=== PATIENT | female | born 1955 | race Caucasian/White ===

== ENCOUNTER 2018-06-18 20:42 | Emergency (ER) | payer OTHER ==
[~2018-06-18] VITALS: Ht 154.9 cm; Wt 90.7 kg
[~2018-06-18 20:42] MED LIST: ATOR10TA PO; CALC500T19 PO; COZ50 PO; LEVO0.124 PO; METF1000 PO; ORE25 PO; SITA50TA3 PO
[2018-06-18 20:55] VITALS: BP 151/79
--- NOTE | 2018-06-18 21:01 | NUR ---
PT BACK TO LOBBY VIA WHEELCHAIR W/ DAUGHTER AT SIDE. VSS, PT ACTING APPROPRIATLY.
--- NOTE | 2018-06-18 21:36 | NUR ---
PT BROUGHT TO BED 12 VIA WHEELCHAIR
--- NOTE | 2018-06-18 21:45 | NUR ---
XRAY AT BEDSIDE.
--- NOTE | 2018-06-18 22:30 | NUR ---
63 YO F BIB SELF AND DAUGHTER PRESENTS TO ED C/O 12/25 SHARP/THROBBING RIGHT KNEE PAIN X 1 DAY. PT STATES SHE "FELT A POP" WHILE ATTEMPTING TO SIT DOWN YESTERDAY. -- NO GROSS DEFORMITY NOTED OR SWELLING NOTED. -- PT STATES UNABLE TO BEAR WEIGHT, BIB WC. -- PMH: DM, HTN, THYROID DISORDER PT POSITIONED FOR COMFORT. HOB ELEVATED. BED IN LOWEST POSITION. SIDE RAIL UP X1. VSS. NO APPARENT DISTRESS AT THIS TIME.
[2018-06-18] MEDS ORDERED: LIDOCAINE/EPI 2% 1:100000 20 ML VIAL INJ ONE (22:50)
[2018-06-18] MEDS ORDERED: methylPREDNISolone SS 125 MG/2 ML VIAL IVP ONE (22:50)
--- NOTE | 2018-06-18 23:00 | NUR ---
DR. DUNCAN PERFORMED KNEE ASPIRATION AT BEDSIDE. MEDICATED WITH LIDOCAINE AND SOLUMEDROL. ASPIRATED 15 ML BROWN SYNOVIAL FLUID. PT TOLERATED WELL AND REPORTED RELIEF FROM KNEE PAIN.
[2018-06-18 23:30] VITALS: BP 146/81
--- NOTE | 2018-06-18 23:30 | NUR ---
Note martha in EDM - 06/19/18 at 0237 [address] [facility] DR. DUNCAN PERFORMED KNEE ASPIRATION AT BEDSIDE. MEDICATED WITH LIDOCAINE AND SOLUMEDROL. ASPIRATED 15 ML BROWN SYNOVIAL FLUID. PT TOLERATED WELL AND REPORTED RELIEF FROM KNEE PAIN.
--- NOTE | 2018-06-18 23:30 | NUR ---
Patient discharged with v/s stable. Written and verbal after care instructions given and explained. Patient alert, oriented and verbalized understanding of instructions. Ambulatory with steady gait. All questions addressed prior to discharge. ID band removed. Patient advised to follow up with PMD. Rx of Naprosyn given. Patient educated on indication of medication including possible reaction and side effects. Opportunity to ask questions provided and answered. Addendum: 06/19/18 at 0239 by [facility] DISCHARGED BY DR. DUNCAN.
== END 2018-06-18 23:30 | disposition home or self-care (01) ==
LOC: MED 20:42
DX: S83.91XA Sprain of unspecified site of right knee, initial encounter (principal); M25.461 Effusion, right knee; J45.909 Unspecified asthma, uncomplicated; E11.9 Type 2 diabetes mellitus without complications; I10 Essential (primary) hypertension; E03.9 Hypothyroidism, unspecified; Z79.84 Long term (current) use of oral hypoglycemic drugs; Z79.899 Other long term (current) drug therapy; X58.XXXA Exposure to other specified factors, initial encounter; Y93.89 Activity, other specified; Y92.89 Other specified places as the place of occurrence of the external cause; Y99.8 Other external cause status
CPT/HCPCS: 20610; 73562; 96372; 99284; J2001; J2930

== ENCOUNTER 2021-10-11 23:27 | Inpatient (IN) | payer OTHER ==
[~2021-10-11] VITALS: Ht 152.4 cm; Wt 103.9 kg
[~2021-10-11 23:27] MED LIST changes: -COZ50 PO; +HYDR-4004 PO; +LOSA50TA57 PO; +METF-1274 PO; -METF1000 PO; -ORE25 PO
[2021-10-11 23:55] VITALS: BP 145/66
[2021-10-12 00:27] LABS: BASOPHILS # (AUTO) 0.1 K/uL (0.00-0.22); BASOPHILS % (AUTO) 0.5 % (0.0-2.0); EOSINOPHILS % (AUTO) 0.2 % (0.0-4.0); LYMPHOCYTES # (AUTO) 1.3 K/uL (2.5-16.5); LYMPHOCYTES % (AUTO) 10.5 % (20.5-51.1); MEAN CORPUSCULAR HEMOGLOBIN 18 pg (27-31); MEAN CORPUSCULAR HGB CONC 30 g/dL (33-37); MEAN CORPUSCULAR VOLUME 60.1 fL (80-94); MONOCYTES # (AUTO) 0.5 K/uL (0.8-1.0); MONOCYTES % (AUTO) 4.2 % (1.7-9.3); NEUTROPHILS # (AUTO) 10.2 K/uL (1.8-7.7); NEUTROPHILS % (AUTO) 84.6 % (42.2-75.2); PLATELET COUNT (AUTO) 386 K/uL (140-450); RED BLOOD CELL COUNT(AUTO) 3.27 MIL/uL (4.20-5.40); RED CELL DISTRIBUTION WIDTH 19.4 % (11.6-13.7)
--- NOTE | 2021-10-12 00:39 | NUR ---
PT TAKEN TO BED 9
[2021-10-12] MEDS ORDERED: ONDANSETRON 4 MG ODT PO ONE (00:40)
[2021-10-12 00:41] LABS: ALBUMIN 3.2 g/dL (3.4-5.0); CARBON DIOXIDE 26.1 mmol/L (21-32); CREATININE 1.2 mg/dL (0.6-1.3); TOTAL BILIRUBIN 0.4 mg/dL (0.0-1.0)
[2021-10-12 00:52] LABS: ANION GAP 11.3 (8-16); POTASSIUM 4.4 mmol/L (3.5-5.1)
--- NOTE | 2021-10-12 00:52 | NUR ---
66 Y/O FEMALE BIB DAUGHTER, C/O GENERAL WEEKNESS X 1 WEEK. PT IS NAUSEATED AND VOMITING X 1 DAY. PT IS NON COMPLIANT WITH HER MEDS AND POOR HISTORIAN. DAUGHTER OF PATIENT STATES THAT THE PT HAS A POOR THIRST/APETITE, FEELS DEPRESSED AND REFUSES TO COOPERATE WITH DAUGHTER ABOUT TAKING HOME MEDS. A/OX4, GCS-15; UNLABORED BREATHING, REFUSES TO SPEAK; AMBULATORY WITH ASSISTANCE; SKIN IS PINK/WARM/DRY; DENIES COUGH, CP, SOB, N/V/D, OR FEVER. PMH: DM, HTN MEDS: UNKNOWN
[2021-10-12] MEDS ORDERED: ONDANSETRON 4 MG/2 ML VIAL IVP ONE (01:00)
[2021-10-12] MEDS ORDERED: cefTRIAXone 1,000 MG in DEXT 5% MINI-BAG PLUS 50 ML IV ONE (01:00)
[2021-10-12] MEDS ORDERED: NACL 0.9% 1,000 ML IV SCH ×2 (01:00→10:45)
--- NOTE | 2021-10-12 01:05 | NUR ---
X-Ray at bedside.
[2021-10-12] MEDS ORDERED: cefTRIAXone 1,000 MG VIAL ONE (01:13)
[2021-10-12 01:39] LABS: WHITE BLOOD COUNT (AUTO) 12.1 K/uL (4.8-10.8)
[2021-10-12 01:40] LABS: HEMATOCRIT 19.7 % (36-48)
[2021-10-12 01:58] LABS: APPEARANCE,URINE CLEAR (CLEAR); BILIRUBIN,URINE NEGATIVE (NEGATIVE); BLOOD, URINE NEGATIVE (NEGATIVE); COLOR,URINE YELLOW (YELLOW); LEUKOCYTE ESTERASE ,URINE TRACE (NEGATIVE); NITRITE, URINE POSITIVE (NEGATIVE); PH,URINE 7.5 (5.0-9.0); UGLUCOSE TRACE (NEGATIVE)
[2021-10-12 02:13] LABS: RBC,URINE 0-5 /HPF (0-5)
--- NOTE | 2021-10-12 02:22 | NUR ---
ERMD AT BEDSIDE TALKING WITH PT
[2021-10-12] MEDS ORDERED: ONDANSETRON 4 MG/2 ML VIAL IVP PRN (03:45)
[2021-10-12] MEDS ORDERED: ZOLPIDEM 5 MG TAB PO PRN (03:45)
[2021-10-12] MEDS ORDERED: ACETAMINOPHEN 325 MG TAB PO PRN (03:45)
[2021-10-12] MEDS ORDERED: DEXTROSE 50% 50 ML SYR IVP PRN (03:50)
--- NOTE | 2021-10-12 04:11 | NUR ---
SERVICE SPECIALIST AT BEDSIDE
[2021-10-12 04:44] LABS: ANION GAP 13.3 (8-16); CARBON DIOXIDE 22.8 mmol/L (21-32); CREATININE 1.1 mg/dL (0.6-1.3); POTASSIUM 4.1 mmol/L (3.5-5.1)
--- NOTE | 2021-10-12 07:17 | NUR ---
Pt report given to GO SUBRAMANIAN. Transfer of care at this time.
--- NOTE | 2021-10-12 07:20 | NUR ---
RECEIVED REPORT FROM GO ROME. TRANSFER OF CARE AT THIS TIME.
[2021-10-12] MEDS: BLOOD GLUCOSE MONITORING 1 DEV DEV FS SCH ×4 (07:30→21:00)
--- NOTE | 2021-10-12 07:30 | NUR ---
PT A&OX4, GCS 15, CALM AND COOEPRATIVE, DENIES PAIN, SOB, CP, N/V/D. WILL CONTINUE TO MONITOR.
--- NOTE | 2021-10-12 07:40 | NUR ---
GAVE REORT AT BEDSIDE TO GO LEACH AT 126A.
--- NOTE | 2021-10-12 07:51 | NUR ---
Patient will be admitted to care of DR. GABRIEL. Admited to TELE. Will go to room 126A. Belongings list completed. Report to GO LEACH AT BEDSIDE.
[2021-10-12] MEDS: DOCUSATE SODIUM 100 MG GELCAP PO SCH (08:14)
--- NOTE | 2021-10-12 09:06 | NUR ---
PATIENT HAS BEEN SCREENED AND CATEGORIZED MODERATE NUTRITION RISK. PATIENT WILL BE SEEN WITHIN 3-5 DAYS OF ADMISSION. 10/13/ [address] Addendum: 10/12/21 at [address]
[2021-10-12 09:58] LABS: ANION GAP 13.7 (8-16); CARBON DIOXIDE 23.4 mmol/L (21-32); CREATININE 1.1 mg/dL (0.6-1.3); POTASSIUM 4.1 mmol/L (3.5-5.1)
[2021-10-12] MEDS: INSULIN LISPRO SLIDING SCALE 100 UNITS/ML VIAL SUBQ PRN ×2 (11:33→21:30)
[2021-10-12] MEDS ORDERED: MAGNESIUM CITRATE 300 ML BTL PO SCH ×2 (12:40→21:00)
[2021-10-12] MEDS ORDERED: fentaNYL citrate 0.05 MG/ML VIAL ONE (12:47)
[2021-10-12] MEDS ORDERED: MIDAZOLAM 2 MG/2 ML VIAL ONE (12:47)
[2021-10-12 12:57] LABS: THYROID STIMULATING HORMONE 41.75 uIU/mL (0.34-3.74)
[2021-10-12] MEDS: SENNA 8.6 MG TAB PO SCH ×2 (13:00→17:06)
[2021-10-12] MEDS: LACTULOSE 20 GM/30 ML UDC PO SCH ×3 (13:00→21:00)
[2021-10-12 13:28] LABS: FREE T4 (FREE THYROXINE) 0.56 ng/dL (0.76-1.46); THYROID STIMULATING HORMONE 45.41 uIU/mL (0.34-3.74)
[2021-10-12] MEDS: MIDAZOLAM 2 MG/2 ML VIAL IVP ONE ×2 (13:29→14:00)
[2021-10-12] MEDS: fentaNYL citrate 0.05 MG/ML VIAL IVP ONE ×2 (13:30→14:00)
[2021-10-12 15:37] LABS: ANION GAP 13.1 (8-16); CARBON DIOXIDE 24.1 mmol/L (21-32); CREATININE 1.2 mg/dL (0.6-1.3); POTASSIUM 4.2 mmol/L (3.5-5.1)
[2021-10-12 16:00] VITALS: BP 117/54
[2021-10-12] MEDS ORDERED: SODIUM FERRIC GLUCONATE 125 MG in NACL 0.9% 100 ML IV SCH (16:00)
[2021-10-12] MEDS: METOCLOPRAMIDE 10 MG/2 ML INJ VIAL IVP SCH (17:04)
[2021-10-12] MEDS ORDERED: MIDAZOLAM 2 MG/2 ML VIAL IVP ONE (17:10)
[2021-10-12] MEDS ORDERED: fentaNYL citrate 0.05 MG/ML VIAL IVP ONE (17:10)
[2021-10-12 19:46] LABS: ANION GAP 12.1 (8-16); CREATININE 1.2 mg/dL (0.6-1.3); POTASSIUM 4.1 mmol/L (3.5-5.1)
[2021-10-12] MEDS: PANTOPRAZOLE 40 MG TABEC PO SCH (21:00)
[2021-10-12] MEDS: DEXTROSE 5% 1,000 ML IV SCH (21:00)
[2021-10-12] MEDS: SODIUM FERRIC GLUCONATE 125 MG in NACL 0.9% 100 ML IV SCH (21:00)
[2021-10-12 23:51] LABS: ANION GAP 11.7 (8-16); CARBON DIOXIDE 25.2 mmol/L (21-32); CREATININE 1.3 mg/dL (0.6-1.3); POTASSIUM 3.9 mmol/L (3.5-5.1)
--- NOTE | 2021-10-12 23:58 | NUR ---
PATIENT AWAKE ALERT TEMP 98.7 SAT 99% LUNGS DIMINISH TO LISTEN NO C/O OF PAIN BLOOD SUGAR 2130 162 COVERED WITH [address] SIDHU CALLED TOLD ME TO HANG D5W AT 150 HOUR HUNG AT 2100.
[2021-10-13] VITALS: BP 130/52
[2021-10-13] MEDS: DEXTROSE 5% 1,000 ML IV SCH (02:50)
[2021-10-13 06:02] LABS: BASOPHILS % (AUTO) 0.4 % (0.0-2.0); CREATININE 1.2 mg/dL (0.6-1.3); EOSINOPHILS # (AUTO) 0.1 K/uL (0-0.4); EOSINOPHILS % (AUTO) 1.1 % (0.0-4.0); HEMATOCRIT 23.7 % (36-48); HEMOGLOBIN 7.3 g/dL (12.0-16.0); LYMPHOCYTES # (AUTO) 1.3 K/uL (2.5-16.5); LYMPHOCYTES % (AUTO) 14.6 % (20.5-51.1); MEAN CORPUSCULAR HEMOGLOBIN 20 pg (27-31); MEAN CORPUSCULAR HGB CONC 31 g/dL (33-37); MEAN CORPUSCULAR VOLUME 65.4 fL (80-94); MONOCYTES # (AUTO) 0.6 K/uL (0.8-1.0); MONOCYTES % (AUTO) 6.5 % (1.7-9.3); NEUTROPHILS # (AUTO) 6.9 K/uL (1.8-7.7); NEUTROPHILS % (AUTO) 77.4 % (42.2-75.2); PLATELET COUNT (AUTO) 346 K/uL (140-450); RED BLOOD CELL COUNT(AUTO) 3.61 MIL/uL (4.20-5.40); RED CELL DISTRIBUTION WIDTH 24.2 % (11.6-13.7)
[2021-10-13 06:17] LABS: ALBUMIN 2.9 g/dL (3.4-5.0); ANION GAP 14.5 (8-16); CARBON DIOXIDE 22.2 mmol/L (21-32); CREATININE 1.2 mg/dL (0.6-1.3); POTASSIUM 3.7 mmol/L (3.5-5.1); TOTAL BILIRUBIN 0.2 mg/dL (0.0-1.0)
[2021-10-13 06:23] LABS: MAGNESIUM 2.5 mg/dL (1.8-2.4); PHOSPHORUS 4.1 mg/dL (2.5-4.9)
[2021-10-13 06:25] LABS: ANION GAP 15.2 (8-16); CARBON DIOXIDE 21.5 mmol/L (21-32); POTASSIUM 3.7 mmol/L (3.5-5.1)
--- NOTE | 2021-10-13 07:30 | NUR ---
RECEIVED ENDORSEMENT FROM SPORTS BOOK SERVER NURSE FOR CONTINUITY OF CARE.ALERT ABLE TO RESPOND VERBALLY RESPIRATION EVEN AND NOT LABORED NO SHORTNESS OF BREATH. ON ROOM AIR. IV SITE ON RIGHT AC JAD 20 RUNNING D51/2 AT 150CC/HOUR. CALL LIGHT WITH IN EASY REACH.
[2021-10-13] MEDS: BLOOD GLUCOSE MONITORING 1 DEV DEV FS SCH ×4 (08:04→21:28)
[2021-10-13] MEDS: HYDROcodone/APAP 5/325 MG 1 TAB TAB PO PRN (08:06)
--- NOTE | 2021-10-13 08:09 | NUR ---
PATIENT WITH PHYSICAL THERAPY AND COMPLAIN OF LEFT KNEE PAIN 9/10 MEDICATED ORDER.
[2021-10-13] MEDS: METOCLOPRAMIDE 10 MG/2 ML INJ VIAL IVP SCH ×3 (08:23→17:15)
[2021-10-13] MEDS ORDERED: LACTULOSE 20 GM/30 ML UDC PO PRN (08:41)
[2021-10-13] MEDS ORDERED: SENNA 8.6 MG TAB PO PRN (08:45)
[2021-10-13] MEDS ORDERED: SENNA 8.6 MG TAB PO SCH (08:55)
[2021-10-13] MEDS ORDERED: LACTULOSE 20 GM/30 ML UDC PO SCH (08:55)
[2021-10-13] MEDS: LACTULOSE 20 GM/30 ML UDC PO SCH ×4 (09:07→21:36)
[2021-10-13] MEDS: DOCUSATE SODIUM 100 MG GELCAP PO SCH (09:07)
[2021-10-13] MEDS: PANTOPRAZOLE 40 MG TABEC PO SCH ×2 (09:07→21:36)
[2021-10-13] MEDS: SENNA 8.6 MG TAB PO SCH ×3 (09:07→17:17)
--- NOTE | 2021-10-13 09:13 | NUR ---
GIVEN ALL DUE MEDICATION ON CLEAR LIQUID DIET.
[2021-10-13] MEDS: INSULIN LISPRO SLIDING SCALE 100 UNITS/ML VIAL SUBQ PRN ×3 (11:40→21:33)
--- NOTE | 2021-10-13 11:40 | NUR ---
BLOOD SUGAR CHECKED GIVE INSULIN COVERAGE
--- NOTE | 2021-10-13 12:33 | NUR ---
GIVEN DUE MEDICATION TOLERATED WELL.
--- NOTE | 2021-10-13 14:00 | NUR ---
GAVE REPORT TO CAMERON STILES FOR CONTINUITY OF CARE. Addendum: 10/13/21 at 1402 by Yuni Goodman LVN WRONG PATIENT
[2021-10-13 14:36] LABS: ANION GAP 9.4 (8-16); CARBON DIOXIDE 23.8 mmol/L (21-32); CREATININE 1.3 mg/dL (0.6-1.3); POTASSIUM 4.2 mmol/L (3.5-5.1)
--- NOTE | 2021-10-13 16:16 | NUR ---
DC PLANNING: [facility] WILL DELIVER THE FWW AT THE HOSPITAL DC PLAN TOGO HOME WITH FWW WHEN STABLE. CM TO FOLLOW
[2021-10-13 18:10] LABS: ANION GAP 11.8 (8-16); CARBON DIOXIDE 24.2 mmol/L (21-32); CREATININE 1.4 mg/dL (0.6-1.3)
--- NOTE | 2021-10-13 18:55 | NUR ---
PATIENT ON BED EATING DINNER HER LIQUID DIET.
--- NOTE | 2021-10-13 19:33 | NUR ---
GAVE REPORT TO IOS SOFTWARE ENGINEER NURSE FOR CONTINUITY OF CARE.
--- NOTE | 2021-10-13 19:34 | NUR ---
RECEIVED REPORT FROM LAW GOMEZ, PATIENT WAS STABLE AT THE TIME OF SHIFT REPORT. PATIENT WAS AWAKE SITTING UP IN BED WITH FAMILY AT BEDSIDE.PATIENT DENIED ANY S/S OF PAIN/DISCOMFORT AT THIS TIME. PATIENT WAS NERVOUS ABOUT COLONOSCOPY TOMORROW, NURSING GAVE PATIENT EDUCATION REGARDING THE PROCEDURE AND EXPECTATIONS. IV SITE CLEAN AND PATENT. PATIENT UNDERSTOOD AND WAS SATISFIED WITH THE EDUCATION GIVEN. BED NOTED AT THE LOWEST LEVEL, SIDE RAILS UP X 2. CALL LIGHT WITHIN REACH. FAMILY MEMBER WAS ADVISED THAT VISITING HOURS CLOSE AT 2030. [email or web address]
[2021-10-13 20:00] VITALS: BP 120/62
--- NOTE | 2021-10-13 20:00 | NUR ---
REVIEWED PLAN OF CARE WITH TEO SAUER LVN. [email or web address]
--- NOTE | 2021-10-13 21:30 | NUR ---
PATIENT WAS GIVEN ALL EVENING MEDICATIONS WAS ABLE TO TOLERATE THEM WELL. PATIENT WAS MADE AWARE TO CALL NURSING FOR ASSISTANCE AND NEEDS. PATIENT UNDERSTOOD AND AGREED. PATIENT CAN EXPLAIN WHY SHE IS IN THE HOSPITAL. SIDE RAILS UP X 2 AND CALL LIGHT WITHIN REACH. [email or web address]
[2021-10-13] MEDS ORDERED: NACL 0.9% 1,000 ML IV SCH (21:55)
[2021-10-13] MEDS: SODIUM FERRIC GLUCONATE 125 MG in NACL 0.9% 100 ML IV SCH (21:57)
--- NOTE | 2021-10-13 23:10 | NUR ---
NURSING COMPLETED ROUNDS, NOTED PATIENT IN BED ASLEEP. NO NOTED RESPIRATORY DISTRESS. NO NOTED S/S OF PAIN/DISCOMFORT. SIDE RAILS X 2 CALL LIGHT IN REACH FOR ASSISTANCE. [email or web address]
[2021-10-14 01:00] LABS: ANION GAP 14.4 (8-16); CARBON DIOXIDE 20.4 mmol/L (21-32); CREATININE 1.5 mg/dL (0.6-1.3); POTASSIUM 3.8 mmol/L (3.5-5.1)
--- NOTE | 2021-10-14 01:30 | NUR ---
PATIENT NOTED ASLEEP IN BED. NO S/S OF PAIN OR RESPIRATORY DISTRESS. SIDE RAILS UP X 2 CALL LIGHT WITHIN REACT. [email or web address]
--- NOTE | 2021-10-14 03:42 | NUR ---
PATIENT IN BED ASLEEP WHILE NURSING WAS DOING ROUNDS. SIDE RAILS UP X 2 CALL LIGHT IN REACH. [email or web address]
[2021-10-14 04:00] VITALS: BP 105/51
--- NOTE | 2021-10-14 05:28 | NUR ---
IV WAS LEAKING AND NEW IV WAS STARTED ON RIGHT HAND WITH 22G. 1ST ATTEMPT ONLY. NO NOTED BLAS OR RESPIRATOY DISTRESS. PATIENT TOLERATED IT WELL. SIDE RALS UP CALL LIGHT WITHIN REACH. [email or web address]
[2021-10-14] MEDS: LEVOTHYROXINE 0.1 MG TAB PO SCH (05:53)
[2021-10-14 06:27] LABS: BASOPHILS # (AUTO) 0.1 K/uL (0.00-0.22); BASOPHILS % (AUTO) 0.7 % (0.0-2.0); EOSINOPHILS # (AUTO) 0.2 K/uL (0-0.4); EOSINOPHILS % (AUTO) 1.7 % (0.0-4.0); HEMATOCRIT 25.2 % (36-48); HEMOGLOBIN 7.7 g/dL (12.0-16.0); LYMPHOCYTES # (AUTO) 1.7 K/uL (2.5-16.5); LYMPHOCYTES % (AUTO) 15.6 % (20.5-51.1); MEAN CORPUSCULAR HEMOGLOBIN 20 pg (27-31); MEAN CORPUSCULAR HGB CONC 31 g/dL (33-37); MEAN CORPUSCULAR VOLUME 65.5 fL (80-94); MONOCYTES # (AUTO) 0.8 K/uL (0.8-1.0); MONOCYTES % (AUTO) 7.4 % (1.7-9.3); NEUTROPHILS # (AUTO) 8.2 K/uL (1.8-7.7); NEUTROPHILS % (AUTO) 74.6 % (42.2-75.2); PLATELET COUNT (AUTO) 426 K/uL (140-450); RED BLOOD CELL COUNT(AUTO) 3.84 MIL/uL (4.20-5.40); RED CELL DISTRIBUTION WIDTH 23.3 % (11.6-13.7)
[2021-10-14] MEDS: BLOOD GLUCOSE MONITORING 1 DEV DEV FS SCH ×4 (06:50→21:43)
[2021-10-14 06:55] LABS: ALBUMIN 3.3 g/dL (3.4-5.0); CARBON DIOXIDE 20.9 mmol/L (21-32); CREATININE 1.5 mg/dL (0.6-1.3); POTASSIUM 3.9 mmol/L (3.5-5.1); TOTAL BILIRUBIN 0.2 mg/dL (0.0-1.0)
[2021-10-14 06:58] LABS: ANION GAP 13.9 (8-16); CARBON DIOXIDE 20.8 mmol/L (21-32); CREATININE 1.5 mg/dL (0.6-1.3); POTASSIUM 3.7 mmol/L (3.5-5.1)
[2021-10-14 07:08] LABS: MAGNESIUM 2.2 mg/dL (1.8-2.4); PHOSPHORUS 3.9 mg/dL (2.5-4.9)
--- NOTE | 2021-10-14 07:36 | NUR ---
ENDORSED PATIENT TO TOM STILES, PATIENT WAS STABLE AT THE CHANGE OF SHIFT. [email or web address]
--- NOTE | 2021-10-14 07:42 | NUR ---
RECEIVED PT FROM NIGHT RN, PT IS AWAKE, ALERT AND ORIENTED, ROMANSH SPEAKING, ON ROOM AIR, SEATED ON THE BED WITH SAFETY PRECAUTION IN PLACE, IV LINE NOTED ON THE RIGHT HAND G. 22 WITH IVF NS INFUSING AT 60ML/HR, INTACT, NO SIGN OF DISTRESS NOTED, PT IS NPO FOR COLONOSCOPY TODAY, AND WILL MONITOR PT.
[2021-10-14 08:00] VITALS: BP 142/64
[2021-10-14] MEDS: DOCUSATE SODIUM 100 MG GELCAP PO SCH (10:26)
[2021-10-14] MEDS: LACTULOSE 20 GM/30 ML UDC PO SCH (10:26)
[2021-10-14] MEDS: METOCLOPRAMIDE 10 MG/2 ML INJ VIAL IVP SCH ×2 (10:27→11:30)
[2021-10-14] MEDS: PANTOPRAZOLE 40 MG TABEC PO SCH ×2 (10:27→21:28)
[2021-10-14] MEDS: SENNA 8.6 MG TAB PO SCH (10:27)
--- NOTE | 2021-10-14 10:27 | NUR ---
PT WAS GIVEN THE SCHEDULED AM MEDICATIONS.
[2021-10-14] MEDS ORDERED: fentaNYL citrate 0.05 MG/ML VIAL ONE (10:50)
[2021-10-14] MEDS ORDERED: MIDAZOLAM 5 MG/5 ML VIAL ONE (10:51)
--- NOTE | 2021-10-14 12:20 | NUR ---
PT'S BLOOD GLUCOSE IS 168 BUT INSULIN COVERAGE WAS HELD DUE TO PT ON NPO FOR A PROCEDURE TODAY.
[2021-10-14 12:22] LABS: ANION GAP 14.8 (8-16); CARBON DIOXIDE 18.5 mmol/L (21-32); CREATININE 1.4 mg/dL (0.6-1.3); POTASSIUM 4.3 mmol/L (3.5-5.1)
[2021-10-14] MEDS: MIDAZOLAM 2 MG/2 ML VIAL IVP ONE ×2 (12:51→13:38)
[2021-10-14] MEDS: fentaNYL citrate 0.05 MG/ML VIAL IVP ONE ×2 (12:52→13:38)
--- NOTE | 2021-10-14 13:33 | NUR ---
PT IS BACK TO THE ROOM NOW FROM A COLONOSCOPY.
--- NOTE | 2021-10-14 17:41 | NUR ---
PT IS SLEEPING NOW, NO SIGN OF DISTRESS NOTED, WILL CONTINUE TO MONITOR PT.
[2021-10-14 17:59] LABS: ANION GAP 13.3 (8-16); CARBON DIOXIDE 20.6 mmol/L (21-32); CREATININE 1.4 mg/dL (0.6-1.3); POTASSIUM 3.9 mmol/L (3.5-5.1)
--- NOTE | 2021-10-14 19:15 | NUR ---
ENDORSED PT TO NIGHT RN FOR CONTINUITY OF CARE, PT IS STABLE AT THIS TIME AND PT IS STILL EATING HER DINNER.
--- NOTE | 2021-10-14 19:16 | NUR ---
RECEIVED REPORT FROM MORNING SHIFT NURSE. PT IS EATING. PT IS LIBERIAN SPEAKING, AOX4, CAN VERBALIZE NEEDS AND ABLE TO FOLLOW COMMANDS. PT IS ON ROOM AIR AND ON CCHO DIET AND HAS IV ON RIGHT HAND G 22. NO S/S OF DISTRESS NOTED AND NO COMPLAIN OF PAIN. ALL SAFETY MEASURES IMPLEMENTED. CALL LIGHT WITHIN REACH, BED IS ON LOW POSITION AND BED WHEELS LOCKED.
[2021-10-14 20:00] VITALS: BP 132/62
[2021-10-14] MEDS: SODIUM FERRIC GLUCONATE 125 MG in NACL 0.9% 100 ML IV SCH (21:33)
--- NOTE | 2021-10-14 21:33 | NUR ---
ALL SCHEDULED MEDICATION WAS GIVEN TO PT PER MD ORDER. PT TOLERATED IT WELL. ALL SAFETY MEASURES IMPLEMENTED. CALL LIGHT WITHIN REACH, BED WHEELS LOCKED AND BED IN LOW POSITION.
[2021-10-14] MEDS: INSULIN LISPRO SLIDING SCALE 100 UNITS/ML VIAL SUBQ PRN (21:44)
--- NOTE | 2021-10-14 22:15 | NUR ---
PT WAS GIVEN FOOD PER PT REQUEST. ALL SAFETY MEASURES IMPLEMENTED. CALL LIGHT WITHIN REACH, BED WHEELS ON LOCK AND BED IN LOW POSITION.
--- NOTE | 2021-10-15 00:11 | NUR ---
SCHEDULED MEDICATION WAS GIVEN PER MD ORDER. ALL SAFETY MEASURES IMPLEMENTED. CALL LIGHT WITHIN REACH, BED WHEELS LOCKED AND BED IN LOW POSITION.
--- NOTE | 2021-10-15 02:00 | NUR ---
PT IS ON SLEEP. CHEST RISE AND FALL SYMMETRICALLY NOTED. RESPIRATION IS EVEN AND UNLABORED BREATHING NOTED. ALL SAFETY MEASURES IMPLEMENTED. CALL LIGHT WITHIN REACH, BED WHEELS ON LOCKED AND BED IN LOW POSITION.
[2021-10-15 04:00] VITALS: BP 153/69
[2021-10-15] MEDS: LEVOTHYROXINE 0.1 MG TAB PO SCH (05:49)
--- NOTE | 2021-10-15 05:49 | NUR ---
SCHEDULE MEDICATION WAS GIVEN TO PT PER MD ORDER. PT TOLERATED IT WELL. ALL SAFETY MEASURES IMPLEMENTED. CALL LIGHT WITHIN REACH, BED WHEELS LOCKED AND BED IN LOW POSITION.
[2021-10-15] MEDS: BLOOD GLUCOSE MONITORING 1 DEV DEV FS SCH ×4 (06:40→21:11)
[2021-10-15] MEDS: INSULIN LISPRO SLIDING SCALE 100 UNITS/ML VIAL SUBQ PRN ×4 (06:41→21:13)
--- NOTE | 2021-10-15 06:41 | NUR ---
PT BLOOD GLUCOSE IS 166. HUMALOG INSULIN 2 UNITS WAS GIVEN TO MD PER MD ORDER. PT TOLERATED IT WELL. ALL SAFETY MEASURES IMPLEMENTED. CALL LIGHT WITHIN REACH, BED WHEELS LOCKED AND BED IN LOW POSITION.
[2021-10-15 07:14] LABS: BASOPHILS # (AUTO) 0.1 K/uL (0.00-0.22); BASOPHILS % (AUTO) 0.7 % (0.0-2.0); EOSINOPHILS # (AUTO) 0.2 K/uL (0-0.4); EOSINOPHILS % (AUTO) 1.6 % (0.0-4.0); HEMATOCRIT 22.3 % (36-48); LYMPHOCYTES # (AUTO) 1.4 K/uL (2.5-16.5); MEAN CORPUSCULAR HEMOGLOBIN 21 pg (27-31); MEAN CORPUSCULAR HGB CONC 31 g/dL (33-37); MEAN CORPUSCULAR VOLUME 66.6 fL (80-94); MONOCYTES # (AUTO) 0.7 K/uL (0.8-1.0); MONOCYTES % (AUTO) 6.5 % (1.7-9.3); NEUTROPHILS # (AUTO) 7.9 K/uL (1.8-7.7); PLATELET COUNT (AUTO) 371 K/uL (140-450); RED BLOOD CELL COUNT(AUTO) 3.34 MIL/uL (4.20-5.40); RED CELL DISTRIBUTION WIDTH 24.1 % (11.6-13.7); WHITE BLOOD COUNT (AUTO) 10.2 K/uL (4.8-10.8)
--- NOTE | 2021-10-15 07:17 | NUR ---
PT IS STABLE. ENDORSED PT TO MORNING SHIFT NURSE FOR CONTINUITY OF CARE.
--- NOTE | 2021-10-15 07:18 | NUR ---
RECEIVED REPORT FROM OUTPATIENT PHYSICAL THERAPIST NURSE FOR CONTINUITY OF CARE. PT IS SLEEPING, EASILY AROUSABLE BY VERBAL STIMULI. RESPIRATIONS EVEN AND UNLABORED ON RA. IV SITE AT RH 22G, TKO. CALL LIGHT WITHIN REACH. SAFETY PRECAUTIONS IN PLACE. WILL CONTINUE TO MONITOR.
--- NOTE | 2021-10-15 07:30 | NUR ---
RECEIVED A CRITICAL LAB VALUE FOR HG 6.9. MADE AWARE AND ORDERED 1UNIT PRBC.
[2021-10-15 07:31] LABS: HEMOGLOBIN 6.9 g/dL (12.0-16.0)
[2021-10-15 07:32] LABS: ALBUMIN 2.8 g/dL (3.4-5.0); ANION GAP 14.8 (8-16); CARBON DIOXIDE 19.2 mmol/L (21-32); CREATININE 1.5 mg/dL (0.6-1.3); TOTAL BILIRUBIN 0.1 mg/dL (0.0-1.0)
[2021-10-15 08:00] VITALS: BP 153/73
--- NOTE | 2021-10-15 08:00 | NUR ---
Patient's Plan of Care was discussed and reviewed with RECRUITER SPECIALIST: DARNELL BAIRD
[2021-10-15] MEDS: PANTOPRAZOLE 40 MG TABEC PO SCH ×2 (08:35→21:02)
[2021-10-15] MEDS: DOCUSATE SODIUM 100 MG GELCAP PO SCH (08:36)
[2021-10-15 08:56] LABS: LYMPHOCYTES % (AUTO) 14.2 % (20.5-51.1)
[2021-10-15] MEDS ORDERED: PANT40EC PO (09:08)
--- NOTE | 2021-10-15 11:20 | NUR ---
BLOOD GLUCOSE CHECK DONE. BS 275. SLIDING SCALE INSULIN ADMINISTERED.
--- NOTE | 2021-10-15 12:00 | NUR ---
STARTED BLOOD TRANSFUSION. NO BLOOD TRANS REACTION NOTED. V/S STABLE. WILL CONTINUE TO MONITOR.
--- NOTE | 2021-10-15 15:00 | NUR ---
BLOOD TRANSFUSION DONE. NO BLOOD TRANSFUSION REACTION NOTED. V/S STABLE. WILL CONTINUE TO MONITOR.
[2021-10-15] MEDS: HYDROcodone/APAP 5/325 MG 1 TAB TAB PO PRN ×2 (15:50→21:02)
--- NOTE | 2021-10-15 15:54 | NUR ---
PT COMPLAINED OF KNEE PAIN 08/25. PRN PAIN MED GIVEN ORDERED.
[2021-10-15 16:00] VITALS: BP 155/73
[2021-10-15] MEDS: FERROUS SULFATE 325 MG TABEC PO SCH (16:06)
--- NOTE | 2021-10-15 16:07 | NUR ---
BLOOD GLUCOSE CHECK DONE. BS 260. SLIDING SCALE INSULIN GIVEN.
--- NOTE | 2021-10-15 19:10 | NUR ---
ENDORSED PT TO FOOD STOREROOM CLERK NURSE FOR CONTINUITY OF CARE. ALL NEEDS MET THROUGHOUT SHIFT. PT IS STABLE.
--- NOTE | 2021-10-15 19:11 | NUR ---
RECEIVED REPORT FROM MORNING SHIFT NURSE. PT IS SITTING ON THE BED WITH HER DAUGHTER ON BED SIDE. PT IS LUXEMBOURGISH SPEAKING, AOX4, CAN VERBALIZE NEEDS AND ABLE TO FOLLOW COMMANDS. PT IS ON ROOM AIR AND ON CCHO DIET AND HAS IV ON RIGHT HAND G 22. NO S/S OF DISTRESS NOTED AND NO COMPLAIN OF PAIN. ALL SAFETY MEASURES IMPLEMENTED. CALL LIGHT WITHIN REACH, BED IS ON LOW POSITION AND BED WHEELS LOCKED.
--- NOTE | 2021-10-15 20:15 | NUR ---
PT IV WAS INFILTRATED. INSERTED NEW IV ON LEFT FOREARM G 22. IV IS NOW INTACT AND PATENT. ALL SAFETY MEASURES IMPLEMENTED. CALL LIGHT WITHIN REACH, BED WHEELS ON LOCKED AND BED IN LOW POSITION.
--- NOTE | 2021-10-15 21:02 | NUR ---
SCHEDULED MEDICATION WAS GIVEN TO PT PER MD ORDER. PT ALSO GIVEN PRN PAIN MEDICATION DUE TO LEFT LEG PAIN COMPLAIN. ALL SAFETY MEASURES IMPLEMENTED. CALL LIGHT WITHIN REACH AND BED IN LOW POSITION.
--- NOTE | 2021-10-15 23:13 | NUR ---
10/15/2021 RD INITIAL ASSESSMENT COMPLETED. PLEASE REFER TO NUTRITION ASSESSMENT UNDER CARE ACTIVITY FOR ESTIMATED NUTRITIONAL NEEDS. 1.CONTINUE WITH [facility] 45GRAMS DIET. 2.MONITOR GLUCOSE LEVEL. 3.RD TO FOLLOW-UP IN 3-5 DAYS PATIENT IS MODERATE RISK. AYAD SCHULER, RD
--- NOTE | 2021-10-15 23:30 | NUR ---
PT WAS ASSIST TO THE BATHROOM. LEFT BEDSIDE COMMODE BUT THE PT STILL WANTS TO USE THE BATHROOM. REMIND THE PT TO PRESS THE CALL LIGHT IF SHE WANTS TO GO TO BATHROOM FOR ASSISTANCE. ALL SAFETY MEASURES IMPLEMENTED. BED WHEELS ON LOCKED AND BED IN LOW POSITION.
--- NOTE | 2021-10-16 00:20 | NUR ---
SCHEDULED MEDICATION WAS GIVEN TO PT PER MD ORDER. PT TOLERATED IT WELL. ALL SAFETY MEASURES IMPLEMENTED, BED WHEELS ON LOCKED, CALL LIGHT WITHIN REACH AND BED IN LOW POSITION.
--- NOTE | 2021-10-16 02:00 | NUR ---
PT IS ON SLEEP. CHEST RISE AND FALL SYMMETRICALLY NOTED. RESPIRATION IS EVEN AND UNLABORED. NO S/S OF RESPIRATORY DISTRESS. ALL SAFETY MEASURES IMPLEMENTED. CALL LIGHT WITHIN REACH, BED WHEELS LOCKED AND BED IN LOW POSITION.
[2021-10-16 04:00] VITALS: BP 150/62
[2021-10-16] MEDS: HYDROcodone/APAP 5/325 MG 1 TAB TAB PO PRN ×2 (05:30→14:04)
--- NOTE | 2021-10-16 05:30 | NUR ---
PT COMPLAIN OF LEG PAIN. PRN PAIN MEDICATION WAS GIVEN. ALL SAFETY MEASURES IMPLEMENTED. CALL LIGHT WITHIN REACH, BED WHEELS LOCKED AND BED IN LOW POSITION.
[2021-10-16] MEDS: LEVOTHYROXINE 0.1 MG TAB PO SCH (05:32)
[2021-10-16 05:57] LABS: BASOPHILS # (AUTO) 0.1 K/uL (0.00-0.22); BASOPHILS % (AUTO) 0.6 % (0.0-2.0); EOSINOPHILS # (AUTO) 0.1 K/uL (0-0.4); HEMATOCRIT 31.4 % (36-48); HEMOGLOBIN 9.9 g/dL (12.0-16.0); LYMPHOCYTES # (AUTO) 1.8 K/uL (2.5-16.5); LYMPHOCYTES % (AUTO) 15.7 % (20.5-51.1); MEAN CORPUSCULAR HEMOGLOBIN 22 pg (27-31); MEAN CORPUSCULAR HGB CONC 31 g/dL (33-37); MEAN CORPUSCULAR VOLUME 69.9 fL (80-94); MONOCYTES # (AUTO) 0.9 K/uL (0.8-1.0); MONOCYTES % (AUTO) 7.7 % (1.7-9.3); NEUTROPHILS # (AUTO) 8.5 K/uL (1.8-7.7); PLATELET COUNT (AUTO) 366 K/uL (140-450); RED BLOOD CELL COUNT(AUTO) 4.49 MIL/uL (4.20-5.40); RED CELL DISTRIBUTION WIDTH 26.9 % (11.6-13.7); WHITE BLOOD COUNT (AUTO) 11.4 K/uL (4.8-10.8)
[2021-10-16 06:24] LABS: ALBUMIN 3.2 g/dL (3.4-5.0); ANION GAP 16.3 (8-16); CARBON DIOXIDE 19.8 mmol/L (21-32); CREATININE 1.3 mg/dL (0.6-1.3); POTASSIUM 4.1 mmol/L (3.5-5.1); TOTAL BILIRUBIN 0.5 mg/dL (0.0-1.0)
[2021-10-16] MEDS: BLOOD GLUCOSE MONITORING 1 DEV DEV FS SCH ×3 (06:34→16:30)
[2021-10-16] MEDS: INSULIN LISPRO SLIDING SCALE 100 UNITS/ML VIAL SUBQ PRN ×2 (06:35→12:41)
--- NOTE | 2021-10-16 07:32 | NUR ---
PT IS STABLE. ENDORSED PT TO MORNING SHIFT NURSE, FOR CONTINUITY OF CARE.
[2021-10-16] MEDS: FERROUS SULFATE 325 MG TABEC PO SCH ×3 (08:00→17:00)
[2021-10-16] MEDS ORDERED: SODIUM BICARBONATE 650 MG TAB PO SCH (09:00)
[2021-10-16] MEDS: PANTOPRAZOLE 40 MG TABEC PO SCH (09:00)
[2021-10-16] MEDS: DOCUSATE SODIUM 100 MG GELCAP PO SCH (09:00)
--- NOTE | 2021-10-16 10:00 | NUR ---
SW CALLED PATIENT'S at HER DAUGHTER MARILYNN ANSWER THE CALL AND SW INFORM HER OF PATIENT'S OF PATIENT'S SCHEDULED APPOINTMENT BY THERE DRYWALL SANDER WITH PCP VINNIE LOGAN AT [address] [place] [id number] ON 10/26/2010 AT 9:00AM . SW PROVIDED PATIENT'S DAUGHTER ALL INFORMATION TIME, AND DATE FOR THE FOLLOW UP APPOINTMENT. PATIENT'S DAUGHTER AGREED TO TAKE PATIENT TO THE APPOINTMENT AND ASSURE SHE WILL WAIT FOR PATIENT. SHE THANKED THESE DRYWALL SANDER AND ENDED THE CALL.
[2021-10-16 12:00] VITALS: BP 140/64
== END 2021-10-16 17:55 | disposition home or self-care (01) | DRG 384 ==
LOC: MED 23:27 → MTU 10-12 03:47 → MMU 10-12 06:52
PROVIDERS: ADMIT Student in an Organized Health Care Education/Training Program; ATTEND Student in an Organized Health Care Education/Training Program
PROC: 0DB98ZX Excision of Duodenum, Via Natural or Artificial Opening Endoscopic, Diagnostic (ICD-10-PCS; 2021-10-12)
PROC: 0DB78ZX Excision of Stomach, Pylorus, Via Natural or Artificial Opening Endoscopic, Diagnostic (ICD-10-PCS; 2021-10-12)
PROC: 0DJD8ZZ Inspection of Lower Intestinal Tract, Via Natural or Artificial Opening Endoscopic (ICD-10-PCS; 2021-10-14)
PROC: 30233N1 Transfusion of Nonautologous Red Blood Cells into Peripheral Vein, Percutaneous Approach (ICD-10-PCS; principal; 2021-10-15)
DX: K25.9 Gastric ulcer, unspecified as acute or chronic, without hemorrhage or perforation (principal); E87.1 Hypo-osmolality and hyponatremia; E44.1 Mild protein-calorie malnutrition; N39.0 Urinary tract infection, site not specified; Z68.41 Body mass index [BMI] 40.0-44.9, adult; Q43.8 Other specified congenital malformations of intestine; N17.9 Acute kidney failure, unspecified; D50.9 Iron deficiency anemia, unspecified; I10 Essential (primary) hypertension; E03.9 Hypothyroidism, unspecified; E11.9 Type 2 diabetes mellitus without complications; E66.9 Obesity, unspecified; Z20.822 Contact with and (suspected) exposure to COVID-19; Z79.899 Other long term (current) drug therapy
CPT/HCPCS: 36415; 36430; 71045; 80048; 80053; 81001; 82533; 82728; 82948; 83540; 83605; 83690; 83735; 83880; 83930; 83935; 84100; 84133; 84300; 84439; 84443; 84484; 85025; 86677; 86886; 86900; 86901; 86920; 87040; 87086; 88305; 88312; 88313; 88342; 93005; 96361; 96365; 96375; 97116; 97163-GP; 99285; J0696; J2250; J2405; J2765; J2916; J3010; J7030; J7060; P9016